=== PATIENT | male | born 1955 | race Hispanic/Latino ===

== ENCOUNTER 2024-05-17 06:04 | Day surgery (SDC) | payer MEDICARE ==
[~2024-05-17] VITALS: Ht 160 cm; Wt 67.6 kg
[2024-05-17] VITALS (16 sets, daily range): BP systolic 95–167; BP diastolic 65–93; PULSE 61–76; RESP 16–20; TEMP 98.6–99.2
[2024-05-17] MEDS ORDERED: ACET-2079 PO (07:08)
[2024-05-17] MEDS ORDERED: GABA300C PO (07:08)
[2024-05-17] MEDS ORDERED: proPOFol 10 MG/ML 20ML VIAL IV ONE (07:27)
[2024-05-17] MEDS: morPHINE 4 MG SYG ONE (08:39)
[2024-05-17] MEDS: 0.9%NACL 1000ML 1,000 ML IV ONE (09:17)
== END 2024-05-17 10:10 | disposition home or self-care (01) ==
LOC: DAH 06:04
PROVIDERS: ATTEND Surgery
DX: C20 Malignant neoplasm of rectum (principal); B02.9 Zoster without complications; Z79.899 Other long term (current) drug therapy
CPT/HCPCS: 45341; J7030; J2704; J2270; A4620; A4215 ×2; A4223; A4657; A4222; A4221; A4663; A4606; J3490